=== PATIENT | female | born 1980 | race Caucasian/White ===

== ENCOUNTER 2017-01-20 12:40 | Emergency (ER) | payer BC ==
[~2017-01-20] VITALS: Ht 172.7 cm; Wt 78.0 kg
[~2017-01-20 12:40] MED LIST: DEXAMETHASONE0.5 MG PO; ENDOCET 5-3251 EACH PO; HYDROCHLOROTH12.5 M3 PO; IBUPROFEN800 MG PO; OMEPRAZOLE20 MG PO; PLAQUENIL200 MG PO; PREDNISONE2.5 MG PO; PRENATAL TABLE1 EAC3 PO; SYSTANE 0.3-0.1 EACH BOTH EYES
[2017-01-20 13:13] LABS: HEMATOCRIT 36.2 % (36.0-46.0); MCH 31.3 PG (29.0-34.0); MCHC 33.1 G/DL (30.0-36.0); MCV 94.3 FL (83-99); MEAN PLAT.VOLUME 11.7 uM^3 (9.5-12.4); PLATELET COUNT 102 K/uL (156-360); RBC DIS.WIDTH-CV 12.5 % (11.8-14.6); RBC DIS.WIDTH-SD 43.1 % (39-53); RED BLOOD COUNT 3.84 M/uL (3.80-5.20); WHITE BLOOD COUNT 3.9 K/uL (4.1-10.2)
[2017-01-20] MEDS ORDERED: CALCITRIOL0.25 MCG PO (13:21)
[2017-01-20 13:22] LABS: CHLORIDE 107 mEq/L (99-109); POTASSIUM 4.8 mEq/L (3.7-5.4); SODIUM 136 mEq/L (136-147)
[2017-01-20] MEDS ORDERED: LISINOPRIL10 MG PO (13:22)
[2017-01-20] MEDS ORDERED: CLARITIN10 M3 PO (13:22)
[2017-01-20 13:24] LABS: GLUCOSE 102 mg/dL (70-99)
[2017-01-20 13:26] LABS: ANION GAP 8 MEQ/L (2-14); TOTAL BILIRUBIN 0.2 mg/dL (0.0-1.0)
[2017-01-20 13:28] LABS: ALKALINE PHOSPHATASE 62 IU/L (3-129); GFR ESTIMATE (CALCULATED) 32 mL/min/
[2017-01-20 13:29] LABS: UREA NITROGEN (BUN) 24 mg/dL (9-23)
[2017-01-20 13:41] LABS: INFLUENZA A VIRAL ANTIGEN POSITIVE; INFLUENZA B VIRAL ANTIGEN NEGATIVE
[2017-01-20 13:49] LABS: ADD MIUA? YES; BILIRUBIN NEGATIVE; BLOOD NEGATIVE; COLOR YELLOW ((YELLOW)); GLUCOSE (STRIP) NEGATIVE; KETONES NEGATIVE; LEUKOCYTES NEGATIVE; NITRITE POSITIVE; PROTEIN (STRIP) 100; SPECIFIC GRAVITY 1.018 (1.000-1.030); UROBILINOGEN 0.2 MG/DL (0.2-1.0)
[2017-01-20 13:55] LABS: BACTERIA RARE /HPF; EPITHELIAL CELLS RARE /HPF; HYALINE CASTS 0-5 /LPF; MUCUS TRACE /LPF; RED BLOOD CELLS 0-5 /HPF (0-5); WHITE BLOOD CELLS 0-5 /HPF (0-5)
[2017-01-20 13:58] LABS: QUANTITATIVE HCG < 4.0 MIU/ML
[2017-01-20] MEDS ORDERED: CIPRO500 MG PO (14:14)
[2017-01-20] MEDS ORDERED: ZOFRAN ODT4 MG PO (14:14)
[2017-01-20 14:38] VITALS: BP 122/66
== END 2017-01-20 14:41 | disposition home or self-care (01) ==
LOC: EME 12:40
PROVIDERS: Nurse Practitioner Family
DX: J10.1 Influenza due to other identified influenza virus with other respiratory manifestations (principal); N39.0 Urinary tract infection, site not specified
CPT/HCPCS: 71020; 80053; 81003; 84702; 85027; 87502; 99281; 99284; J7030